=== PATIENT | female | born 1945 | race Asian ===

== ENCOUNTER 2022-08-02 14:59 | Inpatient (IN) ==
[2022-08-02] MEDS ORDERED: fentaNYL citrate PF 100 MCG/2 ML VIAL IV STA (15:10)
[2022-08-02] MEDS ORDERED: ONDANSETRON INJ 2 MG/ML 2 ML VIAL IV STA (15:10)
[2022-08-02] MEDS ORDERED: SODIUM CHLORIDE 0.9% 500 ML IV STA (15:10)
--- NOTE | 2022-08-02 15:14 | Emergency Department Note ---
Impression & Plan Fracture of pubic ramus, Fall, Contusion of elbow, right, Abrasion of elbow, right ED Provider Note NAME: SHAWN WILLAIM AGE: 77 SEX: F : 1945 ARRIVES VIA: Ambulance INFORMANT: Patient, ED PROVIDER(S): Brock Cisse DO CHIEF COMPLAINT: Hip pain HPI: The patient is a 77-year-old female who presented to the emergency department for an evaluation after a fall. The patient was walking when she fell onto her right side. She states that she was trying to run with some children. She states that she has severe pain in her right hip and is unable to stand. She also injured her right elbow. She denies having any head injury or headache. She has no loss of consciousness reported. There is been no recent symptoms such as fever or vomiting. The patient arrived via BLS. ROS: See above HPI for pertinent positives & negatives. A total of 10 systems reviewed and were otherwise negative. PAST MEDICAL HISTORY: See Below PAST SURGICAL HISTORY: See Below FAMILY HISTORY: See Below SOCIAL HISTORY: See Below HOME MEDICATIONS: See Below ALLERGIES: See Below VITALS: See Below PHYSICAL EXAMINATION: GENERAL: The patient is awake and alert. She is somewhat anxious appearing. EYES: The conjunctivae are clear. The pupils are round and reactive. EARS, NOSE, MOUTH AND THROAT: The nose is without any evidence of any deformity. NECK: The neck is nontender and supple. RESPIRATORY: Normal respiratory effort is noted there is no evidence of wheezing rhonchi or rales CARDIOVASCULAR: Regular rate and rhythm noted there no murmurs rubs or gallops normal S1 normal S2. GASTROINTESTINAL: The abdomen is soft. Abdomen is nontender. BACK: No midline tenderness or or step-off noted range of motion in flexion extension as well as rotation no signs of muscle spasm noted MUSCULOSKELETAL/EXTREMITIES: There is no definite shortening of the right hip but range of motion testing does elicit severe pain. Pulses are symmetric in both feet. There is an abrasion as well as swelling on the lateral aspect of the right elbow. SKIN: There is no obvious evidence of any rash. There are no petechiae, pallor or cyanosis noted. NEUROLOGIC: Patient is awake alert and oriented x3. MEDICAL DECISION MAKING: The patient is a 77-year-old female who presented to the emergency department for an evaluation after a fall. The patient's history and physical exam appear to be consistent with a hip fracture however x-ray does appear to be consistent with an inferior and superior pubic rami fracture of the right hemipelvis. The patient was treated with pain medication. Given her findings I do not feel she would be a good candidate for outpatient management at this time. For this reason I discussed the patient's laboratory and radiographic studies with her. I discussed her condition with her. I also discussed her condition with the on- call [facility]. They have agreed to evaluate the patient in the emergency department for further management and disposition. Triage Nursing notes reviewed. Prior medical records reviewed Vital Signs: reviewed and remarkable for no significant abnormalities Differential diagnosis: Fracture, dislocation, neurovascular compromise, compartment syndrome, soft tissue injury, as well as other pathologies. ER treatment provided: See below Diagnostics interpreted by me: ECG: EKG was obtained in the emergency department. My interpretation is normal sinus rhythm at 81 bpm. There is no ectopy. There is no acute ST segment abnormalities noted. This was compared to a tracing from March 09, 2022. No changes were noted. Cardiac Monitoring: An order was placed for continuous cardiac monitoring. The monitor shows a rate of 81 bpm with sinus rhythm. Laboratory studies: As stated above and show below. Imaging studies: See below. Radiographic imaging was reviewed by myself Consultation(s): I discussed this case with Dr. Streeter who is on-call for the [facility] group. Past Med/Surg History Medical History (Updated 08/02/22 @ 18:38 by Brittany Hill PA-C) Alzheimer's dementia B12 deficiency Memory loss Surgical History History of bunionectomy S/P appendectomy S/P tendon repair right shoulder Family History Mother Hypertension Stroke Father Neurological disorder Social History Smoking Status: Current every day smoker Tobacco Type: Cigarettes Preferred Language: Kazakh Feels Safe at Home: Yes Allergies Allergies Allergy/AdvReac Type Severity Reaction Status Date / Time No Known Allergies Allergy Verified 08/02/22 17:24 Home Meds Home Medications Medication Instructions Recorded Confirmed food supplemt, lactose-reduced 1 ea PO DAILY 12/22/21 08/02/22 (Ensure oral liquid) mecobalamin (vitamin B12) 1,000 1,000 mcg PO DAILY 12/22/21 08/02/22 mcg chewable tablet thiamine HCl (vitamin B1) 100 mg 100 mg PO DAILY 12/22/21 08/02/22 tablet alendronate 70 mg tablet 70 mg PO WK 12/25/21 08/02/22 calcium carbonate 600 mg-vitamin 1 cap PO DAILY 12/25/21 08/02/22 D3 12.5 mcg (500 unit) capsule (Calcium 600 with Vitamin D3) Previous Rx's Medication Instructions Recorded memantine 10 mg tablet 10 mg PO BID #60 tabs 06/04/22 Results & Data (ED) Vital Signs Vital Signs - 24 hr 08/02/22 15:10 08/02/22 15:36 08/02/22 16:17 Temperature 36.7 C Temperature Source Oral Pulse Rate 82 82 78 Pulse Rate [Right Brachial] Pulse Rhythm Regular Regular Pulse Rhythm [Right Brachial] Pulse Strength Normal Pulse Strength [Right Brachial] Respiratory Rate 19 19 Respiratory Effort / Characteristics Non-Labored Spontaneous Respiratory Depth Normal Respiratory Pattern Regular Blood Pressure 115/82 Blood Pressure [Right Arm] Blood Pressure Mean 93 Blood Pressure Mean [Right Arm] Blood Pressure Position Lying Blood Pressure Position [Right Arm] Pulse Oximetry 93 97 Oxygen Delivery Method Room Air Room Air Sepsis Recent Fever Within 48 Hours No Sepsis New/Unexplained Change in Mental Status No Sepsis Action Taken by Nursing No Action Required 08/02/22 17:59 Temperature Temperature Source Pulse Rate Pulse Rate [Right Brachial] 81 Pulse Rhythm Pulse Rhythm [Right Brachial] Regular Pulse Strength Pulse Strength [Right Brachial] Normal Respiratory Rate 19 Respiratory Effort / Characteristics Non-Labored Spontaneous Respiratory Depth Normal Respiratory Pattern Regular Blood Pressure Blood Pressure [Right Arm] 126/90 Blood Pressure Mean Blood Pressure Mean [Right Arm] 102 Blood Pressure Position Blood Pressure Position [Right Arm] Lying Pulse Oximetry 98 Oxygen Delivery Method Room Air Sepsis Recent Fever Within 48 Hours Sepsis New/Unexplained Change in Mental Status Sepsis Action Taken by [facility] Medications Current Medication List: was personally reviewed by me Laboratory Data Attestation: I reviewed the patient's lab results. 08/02/22 15:22 08/02/22 15:31 Lab Results 08/02/22 08/02/2223 Range/Units 15:22 15:22 15:31 WBC 7.32 (4.8-10.8) K/ul RBC 3.71 L (4.20-5.40) M/uL Hgb 11.7 L (12.0-16.0) g/dl Hct 36.1 L (37.0-47.0) % MCV 97.3 (80.0-100.0) fL MCH 31.5 (25.0-34.0) pg MCHC 32.4 (32.0-36.0) g/dL RDW Std Deviation 47.0 H (36.4-46.3) fL RDW Coeff of Carey 13.2 (11.5-14.5) % Plt Count 288 (130-400) K/uL MPV 8.9 L (9.4-12.4) fL Immature Gran % (Auto) 0.5 % Neut % (Auto) 71.9 % Lymph % (Auto) 18.4 % Piatt % (Auto) 7.4 % Eos % (Auto) 1.4 % Baso % (Auto) 0.4 % Neut # (Auto) 5.26 (1.40-6.50) K/uL Lymph # (Auto) 1.35 (1.2-3.4) K/uL Piatt # (Auto) 0.54 (0.11-0.59) K/uL Eos # (Auto) 0.10 (0-0.50) K/uL Baso # (Auto) 0.03 (0-0.2) K/uL Immature Gran # (Auto) 0.04 (0.01-0.20) K/uL PT 10.2 (9.0-12.0) Seconds INR 0.9 (0.9-1.1) APTT 25.2 (21.0-31.0) Seconds PTT Ratio 0.9 Sodium 141 (136-145) mmol/L Potassium 4.1 (3.5-5.1) mmol/L Chloride 109 H (98-107) mmol/L Carbon Dioxide 26 (21-32) mmol/L Anion Gap 6 (3-11) BUN 16 (6-23) mg/dl Creatinine 0.69 (0.6-1.2) mg/dl Est Cr Clr Drug Dosing 45.3 ml/min Est GFR ( Amer) 97.3 ml/min Est GFR (Non-Af Amer) 84.0 ml/min BUN/Creatinine Ratio 23.2 H (10-20) Glucose 99 (70-99(Fasting)) mg/dl Calcium 9.0 (8.6-10.3) mg/dl Total Bilirubin 0.4 (0.2-1.0) mg/dl AST 29 (13-39) U/L ALT 24 (7-52) U/L Alkaline Phosphatase 57 (34-104) U/L Troponin I High Sens 3.5 (0-14) pg/ml Total Protein 6.2 (6.0-8.3) gm/dl Albumin 3.8 (3.4-5.0) gm/dl Globulin 2.4 L (2.5-4.0) gm/dl Albumin/Globulin Ratio 1.6 (0.9-2) Lipase 43 (11-82) U/L SARS-CoV-2, RNA, NAAT (NEGATIVE) 08/02/22 Range/Units Unknown WBC (4.8-10.8) K/ul RBC (4.20-5.40) M/uL Hgb (12.0-16.0) g/dl Hct (37.0-47.0) % MCV (80.0-100.0) fL MCH (25.0-34.0) pg MCHC (32.0-36.0) g/dL RDW Std Deviation (36.4-46.3) fL RDW Coeff of Carey (11.5-14.5) % Plt Count (130-400) K/uL MPV (9.4-12.4) fL Immature Gran % (Auto) % Neut % (Auto) % Lymph % (Auto) % Piatt % (Auto) % Eos % (Auto) % Baso % (Auto) % Neut # (Auto) (1.40-6.50) K/uL Lymph # (Auto) (1.2-3.4) K/uL Piatt # (Auto) (0.11-0.59) K/uL Eos # (Auto) (0-0.50) K/uL Baso # (Auto) (0-0.2) K/uL Immature Gran # (Auto) (0.01-0.20) K/uL PT (9.0-12.0) Seconds INR (0.9-1.1) APTT (21.0-31.0) Seconds PTT Ratio Sodium (136-145) mmol/L Potassium (3.5-5.1) mmol/L Chloride (98-107) mmol/L Carbon Dioxide (21-32) mmol/L Anion Gap (3-11) BUN (6-23) mg/dl Creatinine (0.6-1.2) mg/dl Est Cr Clr Drug Dosing ml/min Est GFR ( Amer) ml/min Est GFR (Non-Af Amer) ml/min BUN/Creatinine Ratio (10-20) Glucose (70-99(Fasting)) mg/dl Calcium (8.6-10.3) mg/dl Total Bilirubin (0.2-1.0) mg/dl AST (13-39) U/L ALT (7-52) U/L Alkaline Phosphatase (34-104) U/L Troponin I High Sens (0-14) pg/ml Total Protein (6.0-8.3) gm/dl Albumin (3.4-5.0) gm/dl Globulin (2.5-4.0) gm/dl Albumin/Globulin Ratio (0.9-2) Lipase (11-82) U/L SARS-CoV-2, RNA, NAAT NEGATIVE (NEGATIVE) Administered Medications Discontinued Medications Fentanyl Citrate (Fentanyl Citrate Pf 100 Mcg/2 Ml Vial) 50 mcg IV NOW STA Stop: 08/02/22 15:11 Last Admin: 08/02/22 15:33 Dose: 50 mcg Documented By: JASON Sodium Chloride (Nss) 500 mls @ 999 mls/hr IV .Q31M STA Stop: 08/02/22 15:40 Last Infusion: 08/02/22 16:17 Dose: 0 mls/hr Documented By: Admin: 08/02/22 15:30 Dose: 999 mls/hr Documented By: JASON Ondansetron HCl (Ondansetron Inj 2 Mg/Ml 2 Ml Vial) 4 mg IV NOW STA Stop: 08/02/22 15:11 Last Admin: 08/02/22 15:32 Dose: 4 mg Documented By: JASON Imaging Data Attestation: I personally reviewed and interpreted this imaging study as follows: My Impression: 1 view chest x-ray was obtained in the emergency department. My interpretation is no free air or infiltrate, final report below. X-ray of the right hip and pelvis was obtained in the emergency department. My interpretation is inferior and superior pubic rami fractures with some displacement. No hip fracture was noted. Final report below. Radiologist's Impression: Chest X-Ray 08/02/22 15:10 XR chest 1V portable CLINICAL HISTORY: Chest pain, nonspecific TECHNIQUE: Single frontal radiograph of the chest was obtained. Comparison: None available at the time of this dictation. FINDINGS: No lines and tubes are seen. Calcified aortic knob is seen. The lungs are clear. No evidence of pleural effusion or pneumothorax. IMPRESSION: No acute chest disease. ACT 112: Negative or not required by law. Electronically signed by: Juan Alberto Mariscal M.D. 08/02/2022 5:01 PM Elbow X-Ray 08/02/22 15:10 XR elbow RT min 3V routine CLINICAL HISTORY: fall TECHNIQUE: 3 views of the right elbow were obtained. Comparison: None available at the time of this dictation. FINDINGS: There is no evidence of an acute fracture. Degenerative changes are seen in the elbow joint. There is no prominence of the anterior or posterior fat pads to suggest an effusion. No soft tissue abnormality is seen. IMPRESSION: No evidence of acute osseous injury. ACT 112: Negative or not required by law. Electronically signed by: Juan Alberto Mariscal M.D. 08/02/2022 4:42 PM Hip/Pelvis X-Ray 08/02/22 15:10 XR hip RT 2V w pelvis CLINICAL HISTORY: fall TECHNIQUE: 2 views of the right hip and single frontal view of the pelvis were obtained. Comparison: None available at the time of this dictation. FINDINGS: There is no evidence of an acute fracture. Joint spaces are well-preserved. No soft tissue abnormality is seen. IMPRESSION: No evidence of acute osseous injury. ACT 112: Negative or not required by law. Electronically signed by: Juan Alberto Mariscal M.D. 08/02/2022 4:[address] 08/02/22 17:15 CT pelvis wo con, CT hip RT wo con CLINICAL HISTORY: fall TECHNIQUE: Helical axial images of the pelvis were obtained and displayed at 5 and 1 mm intervals. Automated dose lowering techniques and/or adjustment according to patient size were utilized for this exam. Dedicated images of the right hip were also obtained. This exam was performed without intravenous contrast. CT DOSE: 331.02 mGy.cm COMPARISON: None available at the time of this dictation. FINDINGS: Bladder: Unremarkable. Reproductive organs: Multiple fibroids are seen. Bowel: Unremarkable. Lymph nodes Pelvic: Unremarkable. Mesenteric: Unremarkable. Peritoneum: Normal Vessels: Atherosclerotic calcifications are seen. Abdominal wall: Unremarkable. Bones: Comminuted fractures of the right inferior pubic ramus and right superior pubic ramus near the pubic symphysis noted. Nondisplaced fractures of the right pubic symphysis cannot be excluded. Degenerative changes are seen in the hips and visualized spine IMPRESSION: Comminuted fractures of the right superior and inferior pubic rami. Possible non displaced fracture of the right pubic symphysis. No hip fracture is seen. Additional findings as above. ACT 112: Negative or not required by law. Electronically signed by: Juan Alberto Mariscal M.D. 08/02/2022 6:[address] 08/02/22 17:15 CT pelvis wo con, CT hip RT wo con CLINICAL HISTORY: fall TECHNIQUE: Helical axial images of the pelvis were obtained and displayed at 5 and 1 mm intervals. Automated dose lowering techniques and/or adjustment according to patient size were utilized for this exam. Dedicated images of the right hip were also obtained. This exam was performed without intravenous contrast. CT DOSE: 331.02 mGy.cm COMPARISON: None available at the time of this dictation. FINDINGS: Bladder: Unremarkable. Reproductive organs: Multiple fibroids are seen. Bowel: Unremarkable. Lymph nodes Pelvic: Unremarkable. Mesenteric: Unremarkable. Peritoneum: Normal Vessels: Atherosclerotic calcifications are seen. Abdominal wall: Unremarkable. Bones: Comminuted fractures of the right inferior pubic ramus and right superior pubic ramus near the pubic symphysis noted. Nondisplaced fractures of the right pubic symphysis cannot be excluded. Degenerative changes are seen in the hips and visualized spine IMPRESSION: Comminuted fractures of the right superior and inferior pubic rami. Possible nondisplaced fracture of the right pubic symphysis. No hip fracture is seen. Additional findings as above. ACT 112: Negative or not required by law. Electronically signed by: Juan Alberto Mariscal M.D. 08/02/2022 6:25 PM Discharge Plan Visit Data Chief Complaint: Hip Pain Stated Complaint: FALL, R HIP PAIN ED Provider: Brock Cisse Discharge Problem: Fracture of pubic ramus, Fall, Contusion of elbow, right, Abrasion of elbow, right Patient Disposition: Being Evaluated by Hospitalist Forms Stand Alone Forms: [facility] Prescriptions Prescriptions: No Action mecobalamin (vitamin B12) 1,000 mcg tablet,chewable 1,000 mcg PO DAILY Ensure Liquid 1 ea PO DAILY thiamine HCl (vitamin B1) 100 mg tablet 100 mg PO DAILY memantine 10 mg tablet 10 mg PO BID Qty: 60 6RF alendronate 70 mg tablet 70 mg PO WK calcium carbonate-vitamin D3 [Calcium 600 with Vitamin D3] 600 mg-12.5 mcg (500 unit) capsule 1 cap PO DAILY Referrals Referrals: Darwin Burt DO [Primary Care Provider] - Fracture of pubic ramus Qualifiers: Encounter type: initial encounter Fracture type: closed Laterality: right Qualified Code(s): S32.591A - Other specified fracture of right pubis, initial encounter for closed fracture Fall Qualifiers: Encounter type: initial encounter Qualified Code(s): W19.XXXA - Unspecified fall, initial encounter Contusion of elbow, right Qualifiers: Encounter type: initial encounter Qualified Code(s): S50.01XA - Contusion of right elbow, initial encounter Abrasion of elbow, right Qualifiers: Encounter type: initial encounter Qualified Code(s): S50.311A - Abrasion of right elbow, initial encounter
[2022-08-02 15:47] LABS: Basophils # (auto) 0.03 K/uL (0-0.2); Basophils % (auto) 0.4 %; Eosinophils % (auto) 1.4 %; Hematocrit (blood only) 36.1 % (37.0-47.0); Hemoglobin 11.7 g/dl (12.0-16.0); Immature Granulocytes # (auto) 0.04 K/uL (0.01-0.20); Immature Granulocytes % (auto) 0.5 %; Lymphocytes # (auto) 1.35 K/uL (1.2-3.4); Lymphocytes % (auto) 18.4 %; Mean Corpuscular Hemoglobin 31.5 pg (25.0-34.0); Mean Corpuscular Hgb Conc 32.4 g/dL (32.0-36.0); Mean Corpuscular Volume 97.3 fL (80.0-100.0); Mean Platelet Volume 8.9 fL (9.4-12.4); Monocytes # (auto) 0.54 K/uL (0.11-0.59); Monocytes % (auto) 7.4 %; Neutrophils # (auto) 5.26 K/uL (1.40-6.50); Neutrophils % (auto) 71.9 %; Platelet Count 288 K/uL (130-400); RDW Coefficient of Variation 13.2 % (11.5-14.5); Red Blood Count 3.71 M/uL (4.20-5.40); White Blood Count 7.32 K/ul (4.8-10.8)
[2022-08-02 16:04] LABS: Albumin Globulin Ratio 1.6 (0.9-2); Albumin Level 3.8 gm/dl (3.4-5.0); BUN Creatinine Ratio 23.2 (10-20); Bilirubin,Total 0.4 mg/dl (0.2-1.0); Creatinine Clr Calc Pharmacy 45.3 ml/min; Est GFR (African American) 97.3 ml/min; Globulin 2.4 gm/dl (2.5-4.0); Potassium 4.1 mmol/L (3.5-5.1); Total Protein 6.2 gm/dl (6.0-8.3)
[2022-08-02 16:11] LABS: Troponin I High Sensitivity 3.5 pg/ml (0-14)
[2022-08-02 16:20] LABS: INR 0.9 (0.9-1.1); Partial Thromboplastin Ratio 0.9; Partial Thromboplastin Time 25.2 Seconds (21.0-31.0); Prothrombin Time 10.2 Seconds (9.0-12.0)
--- NOTE | 2022-08-02 16:31 | XRay Report ---
XR hip RT 2V w pelvis CLINICAL HISTORY: fall TECHNIQUE: 2 views of the right hip and single frontal view of the pelvis were obtained. Comparison: None available at the time of this dictation. FINDINGS: There is no evidence of an acute fracture. Joint spaces are well-preserved. No soft tissue abnormalit y is seen. IMPRESSION: No evidence of acute osseous injury. ACT 112: Negative or not required by law. Electronically signed by: Juan Alberto Mariscal M.D. 08/02/2022 4:29 PM
--- NOTE | 2022-08-02 16:44 | XRay Report ---
XR elbow RT min 3V routine CLINICAL HISTORY: fall TECHNIQUE: 3 views of the right elbow were obtained. Comparison: None available at the time of this dictation. FINDINGS: There is no evidence of an acute fracture. Degenerative changes are seen in the elbow joint. There is no prominence of the anterior or posterior fat pads to suggest an effusion. No soft tissue abnormali ty is seen. IMPRESSION: No evidence of acute osseous injury. ACT 112: Negative or not required by law. Electronically signed by: Juan Alberto Mariscal M.D. 08/02/2022 4:42 PM
--- NOTE | 2022-08-02 17:02 | XRay Report ---
XR chest 1V portable CLINICAL HISTORY: Chest pain, nonspecific TECHNIQUE: Single frontal radiograph of the chest was obtained. Comparison: None available at the time of this dictation. FINDINGS: No lines and tubes are seen. Calcified aortic knob is seen. The lungs are clear. No evidence of pleur al effusion or pneumothorax. IMPRESSION: No acute chest disease. ACT 112: Negative or not required by law. Electronically signed by: Juan Alberto Mariscal M.D. 08/02/2022 5:01 PM
--- NOTE | 2022-08-02 18:27 | CT Scan Report ---
CT pelvis wo con, CT hip RT wo con CLINICAL HISTORY: fall TECHNIQUE: Helical axial images of the pelvis were obtained and displayed at 5 and 1 mm intervals. Au tomated dose lowering techniques and/or adjustment according to patient size were utilized for this e xam. Dedicated images of the right hip were also obtained. This exam was performed without intravenou s contrast. CT DOSE: 331.02 mGy.cm COMPARISON: None available at the time of this dictation. FINDINGS: Bladder: Unremarkable. Reproductive organs: Multiple fibroids are seen. Bowel: Unremarkable. Lymph nodes Pelvic: Unremarkable. Mesenteric: Unremarkable. Peritoneum: Normal Vessels: Atherosclerotic calcifications are seen. Abdominal wall: Unremarkable. Bones: Comminuted fractures of the right inferior pubic ramus and right superior pubic ramus near the pubic symphysis noted. Nondisplaced fractures of the right pubic symphysis cannot be excluded. Degen erative changes are seen in the hips and visualized spine IMPRESSION: Comminuted fractures of the right superior and inferior pubic rami. Possible nondisplaced fracture of the right pubic symphysis. No hip fracture is seen. Additional findings as above. ACT 112: Negative or not required by law. Electronically signed by: Juan Alberto Mariscal M.D. 08/02/2022 6:25 PM
--- NOTE | 2022-08-02 18:38 | History & Physical Report ---
Date of Service August 02, 2022 Assessment & Plan (1) Fall: (2) Fracture of pubic ramus: (3) Contusion of elbow, right: (4) Abrasion of elbow, right: (5) Alzheimer's dementia: (6) Osteoporosis: Plan This is a 77-year-old female who presents to ED after sustaining a mechani jerri fall at home. Her past medical history includes Alzheimer's dementia, tobacco abuse, osteoporosis, B12 deficiency and bilateral atherosclerosis of lower extremities. Fall, mechanical Osteoporosis with pathologic R pubic rami fx admit to medical consult ortho bed rest for now, consult PT/OT after seen and cleared by ortho if non surgical scheduled tylenol for pain, ICE, prn morphine for severe pain regular diet Dementia continue namenda Tobacco abuse pt declines nicotine patch at this time mood stable and pleasent Osteoporosis on fosamax as OP also just started on vit D 1,000 IU daily vit D level in a.m. DVT ppx: SCDS Dispo: admit to medical, will need ortho clearance and then PT/OT, likely to need rehab PCP: [facility] Pt was seen and examined in collaboration with Dr. Streeter, please see addendum History of Present Illness Chief Complaint: Fall prior to arrival. Primary Care Provider: Darwin Burt, This is a 77-year-old female who presents to ED after sustaining a mechanical fall at home. Her past medical history includes Alzheimer's dementia, tobacco abuse, osteoporosis, B12 deficiency and bilateral atherosclerosis of lower extremities. Imaging in ED revealed comminuted fracture of the right superior and inferior pubic rami with a possible nondisplaced fracture of the right pubic symphysis. She also has a right elbow abrasion and contusion. Due to her dementia her underlying history is unreliable. She states she fell when trying to, "get her Doberman." Friends at bedside state this was not the case and that she fell on her payment. Up until her fall today she is otherwise been in normal state of health. She denies any recent illness, fever, chills, sweats, chest pain, shortness of breath, nausea, vomiting, abdominal pain. She has no family close by. She does have a daughter that lives up in [place] who is her power of deputy commonwealth's attorney. Allergies Allergy/AdvReac Type Severity Reaction Status Date / Time No Known Allergies Allergy Verified 08/02/22 17:24 Home Medications Medication Instructions Recorded Confirmed Type food supplemt, lactose-reduced 1 ea PO DAILY 12/22/21 08/02/22 History (Ensure oral liquid) mecobalamin (vitamin B12) 1,000 1,000 mcg PO DAILY 12/22/21 08/02/22 History mcg chewable tablet thiamine HCl (vitamin B1) 100 mg 100 mg PO DAILY 12/22/21 08/02/22 History tablet alendronate 70 mg tablet 70 mg PO WE 12/25/21 08/02/22 History calcium carbonate 600 mg-vitamin 1 cap PO DAILY 12/25/21 08/02/22 History D3 12.5 mcg (500 unit) capsule (Calcium 600 with Vitamin D3) memantine 10 mg tablet 10 mg PO BID #60 tabs 06/04/22 08/02/22 Rx cholecalciferol (vitamin D3) 25 25 mcg PO DAILY 08/02/22 08/02/22 History mcg (1,000 unit) capsule (Vitamin D3) multivitamin-ferrous 1 tab PO DAILY 08/02/22 08/02/22 History fumarate-folic acid 18 mg-400 mcg tablet (Centrum Women) pantoprazole 40 mg tablet,delayed 40 mg PO DAILY 08/02/22 08/02/22 History release Past Med/Surg History Medical History (Updated 08/02/22 @ 18:38 by Brittany Hill PA-C) Alzheimer's dementia B12 deficiency Memory loss Surgical History History of bunionectomy S/P appendectomy S/P tendon repair right shoulder Family History Mother Hypertension Stroke Father Neurological disorder Social History Smoking Status: Current every day smoker Tobacco Type: Cigarettes Preferred Language: Wolof Feels Safe at Home: Yes Review of Systems Review of Systems: All systems reviewed & are unremarkable except as noted in HPI & below Physical Exam Physical Exam: Constitutional: Thin, petite vitals as above, NAD, sitting up in bed, pleasant, conversing easily Head: Normocephalic, Atraumatic Eyes: PERRL, conjunctivae normal, anicteric sclerae ENMT: external ear and nose normal, oropharynx normal Neck: trachea midline, no thyromegaly normal visual inspection Respiratory: normal respiratory effort, lungs clear to auscultation, no wheeze, rales, rhonchi. Normal insp/exp effort, no accessory muscle use Cardiovascular: RRR, no murmur, no edema Vessels: no JVD or carotid bruit Chest: normal inspection of chest Abdomen: normal bowel sounds, soft, nontender, no hepatosplenomegaly Musculoskeletal: no cyanosis or clubbing, b/l upper ext arom intact, nvi distally lower ext Skin: no rashes, warm and dry normal turgor , R elbow skin tear Neurologic: PERRL, EOMI, accommodation nl, no face palsy, no dysarthria CN's II-XI intact bilaterally and moves all extremities Psychiatric: A+Ox2 to person/time, euthymic affect Lymphatic: no cervical or axillary lymphadenopathy : deferred Results & Data Results & Data Vital Signs (Past 12 Hours) Vital Signs Temp Pulse Pulse Resp BP BP Pulse Ox 08/02/22 17:59 81 19 126/90 98 08/02/22 16:17 78 08/02/22 15:36 82 19 97 08/02/22 15:10 36.7 C 82 19 115/82 93 O2 Del Method 08/02/22 17:59 Room Air 08/02/22 16:17 08/02/22 15:36 Room Air 08/02/22 15:10 Room Air Diagnostic Findings Chest X-Ray 08/02/22 15:10 XR chest 1V portable CLINICAL HISTORY: Chest pain, nonspecific TECHNIQUE: Single frontal radiograph of the chest was obtained. Comparison: None available at the time of this dictation. FINDINGS: No lines and tubes are seen. Calcified aortic knob is seen. The lungs are clear. No evidence of pleural effusion or pneumothorax. IMPRESSION: No acute chest disease. ACT 112: Negative or not required by law. Electronically signed by: Juan Alberto Mariscal M.D. 08/02/2022 5:01 PM Elbow X-Ray 08/02/22 15:10 XR elbow RT min 3V routine CLINICAL HISTORY: fall TECHNIQUE: 3 views of the right elbow were obtained. Comparison: None available at the time of this dictation. FINDINGS: There is no evidence of an acute fracture. Degenerative changes are seen in the elbow joint. There is no prominence of the anterior or posterior fat pads to suggest an effusion. No soft tissue abnormality is seen. IMPRESSION: No evidence of acute osseous injury. ACT 112: Negative or not required by law. Electronically signed by: Juan Alberto Mariscal M.D. 08/02/2022 4:42 PM Hip/Pelvis X-Ray 08/02/22 15:10 XR hip RT 2V w pelvis CLINICAL HISTORY: fall TECHNIQUE: 2 views of the right hip and single frontal view of the pelvis were obtained. Comparison: None available at the time of this dictation. FINDINGS: There is no evidence of an acute fracture. Joint spaces are well-preserved. No soft tissue abnormality is seen. IMPRESSION: No evidence of acute osseous injury. ACT 112: Negative or not required by law. Electronically signed by: Juan Alberto Mariscal M.D. 08/02/2022 4:[address] 08/02/22 17:15 CT pelvis wo con, CT hip RT wo con CLINICAL HISTORY: fall TECHNIQUE: Helical axial images of the pelvis were obtained and displayed at 5 and 1 mm intervals. Automated dose lowering techniques and/or adjustment according to patient size were utilized for this exam. Dedicated images of the right hip were also obtained. This exam was performed without intravenous contrast. CT DOSE: 331.02 mGy.cm COMPARISON: None available at the time of this dictation. FINDINGS: Bladder: Unremarkable. Reproductive organs: Multiple fibroids are seen. Bowel: Unremarkable. Lymph nodes Pelvic: Unremarkable. Mesenteric: Unremarkable. Peritoneum: Normal Vessels: Atherosclerotic calcifications are seen. Abdominal wall: Unremarkable. Bones: Comminuted fractures of the right inferior pubic ramus and right superior pubic ramus near the pubic symphysis noted. Nondisplaced fractures of the right pubic symphysis cannot be excluded. Degenerative changes are seen in the hips and visualized spine IMPRESSION: Comminuted fractures of the right superior and inferior pubic rami. Possible nondisplaced fracture of the right pubic symphysis. No hip fracture is seen. Additional findings as above. ACT 112: Negative or not required by law. Electronically signed by: Juan Alberto Mariscal M.D. 08/02/2022 6:[address] 08/02/22 17:15 CT pelvis wo con, CT hip RT wo con CLINICAL HISTORY: fall TECHNIQUE: Helical axial images of the pelvis were obtained and displayed at 5 and 1 mm intervals. Automated dose lowering techniques and/or adjustment according to patient size were utilized for this exam. Dedicated images of the right hip were also obtained. This exam was performed without intravenous contrast. CT DOSE: 331.02 mGy.cm COMPARISON: None available at the time of this dictation. FINDINGS: Bladder: Unremarkable. Reproductive organs: Multiple fibroids are seen. Bowel: Unremarkable. Lymph nodes Pelvic: Unremarkable. Mesenteric: Unremarkable. Peritoneum: Normal Vessels: Atherosclerotic calcifications are seen. Abdominal wall: Unremarkable. Bones: Comminuted fractures of the right inferior pubic ramus and right superior pubic ramus near the pubic symphysis noted. Nondisplaced fractures of the right pubic symphysis cannot be excluded. Degenerative changes are seen in the hips and visualized spine IMPRESSION: Comminuted fractures of the right superior and inferior pubic rami. Possible nondisplaced fracture of the right pubic symphysis. No hip fracture is seen. Additional findings as above. ACT 112: Negative or not required by law. Electronically signed by: Juan Alberto Mariscal M.D. 08/02/2022 6:25 PM Medications Administered Medication List Discontinued Medications Fentanyl Citrate (Fentanyl Citrate Pf 100 Mcg/2 Ml Vial) 50 mcg IV NOW STA Stop: 08/02/22 15:11 Last Admin: 08/02/22 15:33 Dose: 50 mcg Documented By: JASON Sodium Chloride (Nss) 500 mls @ 999 mls/hr IV .Q31M STA Stop: 08/02/22 15:40 Last Infusion: 08/02/22 16:17 Dose: 0 mls/hr Documented By: Admin: 08/02/22 15:30 Dose: 999 mls/hr Documented By: JASON Ondansetron HCl (Ondansetron Inj 2 Mg/Ml 2 Ml Vial) 4 mg IV NOW STA Stop: 08/02/22 15:11 Last Admin: 08/02/22 15:32 Dose: 4 mg Documented By: JASON ECG Rate (beats per minute): 81 Rhythm: normal sinus Additional Comments: qtc 460ms COVID-19 Results Results COVID-19 Adm Lab Results: RBC 3.71 M/uL (4.20-5.40) L 08/02/22 WBC 7.32 K/ul (4.8-10.8) 08/02/22 Hgb 11.7 g/dl (12.0-16.0) L 08/02/22 Hct 36.1 % (37.0-47.0) L 08/02/22 Plt Count 288 K/uL (130-400) 08/02/22 Neutrophils (%) (Auto) 71.9 % 08/02/22 Lymphocytes (%) (Auto) 18.4 % 08/02/22 Monocytes # (Auto) 0.54 K/uL (0.11-0.59) 08/02/22 Eosinophils # (Auto) 0.10 K/uL (0-0.50) 08/02/22 Immature Granulocyte % (Auto) 0.5 % 08/02/22 Neutrophils # (Auto) 5.26 K/uL (1.40-6.50) 08/02/22 Lymphocytes # (Auto) 1.35 K/uL (1.2-3.4) 08/02/22 Monocytes # (Auto) 0.54 K/uL (0.11-0.59) 08/02/22 Eosinophils # (Auto) 0.10 K/uL (0-0.50) 08/02/22 Basophils # (Auto) 0.03 K/uL (0-0.2) 08/02/22 Immature Granulocyte # (Auto) 0.04 K/uL (0.01-0.20) 3 Na 141 mmol/L (136-145) 08/02/22 K 4.1 mmol/L (3.5-5.1) 08/02/22 Cl 109 mmol/L (98-107) H 08/02/22 CO2 26 mmol/L (21-32) 08/02/22 Anion Gap 6 (3-11) 08/02/22 BUN 16 mg/dl (6-23) 08/02/22 Creatinine 0.69 mg/dl (0.6-1.2) 08/02/22 BUN/Creatinine Ratio 23.2 (10-20) H 08/02/22 Glucose Level 99 mg/dl (70-99(Fasting)) 08/02/22 Ca 9.0 mg/dl (8.6-10.3) 08/02/22 Total Bilirubin 0.4 mg/dl (0.2-1.0) 08/02/22 AST/SGOT 29 U/L (13-39) 08/02/22 ALT/SGPT 24 U/L (7-52) 08/02/22 Alkaline Phosphatase 57 U/L (34-104) 08/02/22 Total Protein 6.2 gm/dl (6.0-8.3) 08/02/22 Albumin 3.8 gm/dl (3.4-5.0) 08/02/22 Globulin 2.4 gm/dl (2.5-4.0) L 08/02/22 Albumin/Globulin Ratio 1.6 (0.9-2) 08/02/22 PTT 25.2 Seconds (21.0-31.0) 08/02/22 INR 0.9 (0.9-1.1) 08/02/22 SARS-CoV-2, RNA, NAAT NEGATIVE (NEGATIVE) 08/02/22 Chest X-Ray 08/02/22 Code Status & VTE Plan Code Status FULL CODE VTE Prophylaxis Plan VTE Prophylaxis will be ordered: Yes Supervising Physician Co-Signing Physician Notes I have seen and examined the patient and have discussed the case with the provider above. I agree with the assessment and plan as stated. 77 yo female with dementia preesents with right hip pain after ra fall. She is unable to walk and was found to have a pelvis fracture. She continuees to repeat herself and has surprise when you repeat something that was just said. Poor historian. No current pain at rest but pain with moovmeeent. Physical revelas a thin , frail female in NAD. Speech intact but has memory decline. Disoriented to time. Carrdiopulmonaryr exam is within normal limits and lower extremities are NVI. Workup reveals fracture as noted above. Labs and imaging reviewed. 1. Osteoporotic fracture of pubic ramus 2. Dementia 3. Smoker 77 yo female with dementia who lives alone and suffered a fall with pubic ring fracture. Currently unable to walk and ortho is consulted. Cont good pain control efforts. PT/OT evaluation and recs. DO Ferdinand (1) Fall Encounter type: initial encounter Qualified Code(s): W19.XXXA - Unspecified fall, initial encounter (2) Fracture of pubic ramus Encounter type: initial encounter Fracture type: closed Laterality: right Qualified Code(s): S32.591A - Other specified fracture of right pubis, initial encounter for closed fracture (3) Contusion of elbow, right Encounter type: initial encounter Qualified Code(s): S50.01XA - Contusion of right elbow, initial encounter (4) Abrasion of elbow, right Encounter type: initial encounter Qualified Code(s): S50.311A - Abrasion of right elbow, initial encounter
[2022-08-02] MEDS ORDERED: MoRPHine SULFATE 2 MG/ML CARP IV PRN (20:57)
[2022-08-02] MEDS ORDERED: ACETAMINOPHEN 325 MG TAB PO PRN (20:57)
[2022-08-02] MEDS ORDERED: POLYETHYLENE (MIRALAX) 17 GM PACK PO PRN (20:57)
[2022-08-02] MEDS: ACETAMINOPHEN 325 MG TAB PO SCH (22:26)
[2022-08-02] MEDS: MEMANTINE HCL 10 MG TAB PO SCH (22:27)
[2022-08-03 06:54] LABS: Hematocrit (blood only) 32.5 % (37.0-47.0); Hemoglobin 10.5 g/dl (12.0-16.0); Mean Corpuscular Hemoglobin 31.3 pg (25.0-34.0); Mean Corpuscular Hgb Conc 32.3 g/dL (32.0-36.0); Mean Corpuscular Volume 96.7 fL (80.0-100.0); Mean Platelet Volume 9.1 fL (9.4-12.4); Platelet Count 243 K/uL (130-400); RDW Coefficient of Variation 13.1 % (11.5-14.5); RDW Standard Deviation 46.4 fL (36.4-46.3); Red Blood Count 3.36 M/uL (4.20-5.40); White Blood Count 7.23 K/ul (4.8-10.8)
[2022-08-03 07:12] LABS: BUN Creatinine Ratio 24.6 (10-20); Calcium 8.8 mg/dl (8.6-10.3); Creatinine Clr Calc Pharmacy 49.5 ml/min; Est GFR (African American) 101.3 ml/min; Est GFR (Non-African American) 87.4 ml/min
--- NOTE | 2022-08-03 07:36 | Orthopedic Consultation ---
Date of Consultation August 02, 2022 Assessment & Plan (1) Fracture of pubic ramus: 77-year-old female with lateral compression I pelvis fracture -Pain control -Weight-bear as tolerated right lower extremity with walker -PT/OT -DVT prophylaxis per primary team -Medical management -Patient is stable from orthopedic standpoint. Would recommend conservative treatment with judicious pain control as well as weightbearing as tolerated using a walker with the assistance of physical therapy. No further orthopedic intervention at this time. Patient may follow-up as an outpatient in 1-2 weeks History of Present Illness Attending Physician: Khris Fuchs MD History of Present Illness 77-year-old female presenting after sustaining a ground-level fall onto her right side. She noted difficulty ambulating and pain in her groin/pubic area. In the emergency department radiographs and CT scan were obtained which demonstrated right pubic rami fractures. She was admitted to medical service and orthopedics was consulted for management recommendations. Allergies Allergy/AdvReac Type Severity Reaction Status Date / Time No Known Allergies Allergy Verified 08/02/22 17:24 Home Medications Medication Instructions Recorded Confirmed Type food supplemt, lactose-reduced 1 ea PO DAILY 12/22/21 08/02/22 History (Ensure oral liquid) mecobalamin (vitamin B12) 1,000 1,000 mcg PO DAILY 12/22/21 08/02/22 History mcg chewable tablet thiamine HCl (vitamin B1) 100 mg 100 mg PO DAILY 12/22/21 08/02/22 History tablet alendronate 70 mg tablet 70 mg PO WE 12/25/21 08/02/22 History calcium carbonate 600 mg-vitamin 1 cap PO DAILY 12/25/21 08/02/22 History D3 12.5 mcg (500 unit) capsule (Calcium 600 with Vitamin D3) memantine 10 mg tablet 10 mg PO BID #60 tabs 06/04/22 08/02/22 Rx cholecalciferol (vitamin D3) 25 25 mcg PO DAILY 08/02/22 08/02/22 History mcg (1,000 unit) capsule (Vitamin D3) multivitamin-ferrous 1 tab PO DAILY 08/02/22 08/02/22 History fumarate-folic acid 18 mg-400 mcg tablet (Centrum Women) pantoprazole 40 mg tablet,delayed 40 mg PO DAILY 08/02/22 08/02/22 History release Patient History Medical History (Updated 08/02/22 @ 18:38 by Brittany Hill PA-C) Alzheimer's dementia B12 deficiency Memory loss Surgical History History of bunionectomy S/P appendectomy S/P tendon repair right shoulder Family History Mother Hypertension Stroke Father Neurological disorder Social History Smoking Status: Current every day smoker Tobacco Type: Cigarettes Cigarettes Per Day: 4-6; Second Hand Exposure: No; Do You Dip or Chew Tobacco: No; Tobacco Cessation Education Requested by Patient: No Hx Alcohol Use: Yes Alcohol type: wine Hx Substance Use: No Preferred Language: Azerbaijani Communication Ability: Effective Operations [place] Required: No Beliefs That Will Affect Care: None Current Living Situation: Alone Other Information That Helps Us Care for You: No Feels Safe at Home: Yes Safety Concerns: Feels Safe At This Time Assistive Devices: Denture - Upper, Denture - Lower, Glasses, Hospital Bed and Walker Physical Exam Constitutional: General: No acute distress, alert and oriented to person place and time Musculoskeletal: Right lower extremity -Tolerates logroll without any significant pain, there is minimal tenderness ove r the posterior SI joint -Thigh soft and compressible -Sensation intact to light touch f/s/spn/dpn/t/s -Fires qta/ehl/gsc + dp/pt Results & Data Vital Signs (Past 12 Hours) Vital Signs Temp Pulse Pulse Resp BP BP Pulse Ox 08/03/22 07:12 36.9 C 86 16 123/73 96 08/02/22 20:45 08/02/22 20:45 08/02/22 20:45 36.7 C 80 16 124/74 95 08/02/22 20:45 08/02/22 21:47 36.7 C 80 16 124/74 95 08/02/22 20:04 82 19 140/72 93 Pulse Ox O2 Del Method O2 Del Method 08/03/22 07:12 Room Air 08/02/22 20:45 Room Air 08/02/22 20:45 Room Air 08/02/22 20:45 Room Air 08/02/22 20:45 95 Room Air 08/02/22 21:47 Room Air 08/02/22 20:04 Room Air Diagnostic Findings CT scan of the pelvis demonstrates mildly displaced right superior and inferior pubic rami fractures. There also appears to be a mildly impacted fracture involving the right sacral ala. (1) Fracture of pubic ramus Encounter type: initial encounter Fracture type: closed Laterality: right Qualified Code(s): S32.591A - Other specified fracture of right pubis, initial encounter for closed fracture
[2022-08-03] MEDS: MEMANTINE HCL 10 MG TAB PO SCH ×2 (09:15→20:03)
[2022-08-03] MEDS: CALCIUM 600MG + VIT D 400 IU TAB PO SCH (09:16)
[2022-08-03] MEDS: THIAMINE HCL 100 MG TAB PO SCH (09:16)
[2022-08-03] MEDS: CYANOCOBALAMIN (B-12) 500 MCG TABLET PO SCH (09:16)
[2022-08-03] MEDS: MULTIVITAMIN TAB PO SCH (09:16)
[2022-08-03] MEDS: PANTOprazole 40 MG TAB PO SCH (09:17)
[2022-08-03] MEDS: CHOLECALCIFEROL 1,000 UNITS 25 MCG TAB PO SCH (09:17)
[2022-08-03] MEDS: ACETAMINOPHEN 325 MG TAB PO SCH ×4 (09:17→20:02)
--- NOTE | 2022-08-03 10:32 | Electrocardiogram Report ---
Test Reason : Blood Pressure : / mmHG Vent. Rate : 081 BPM Atrial Rate : 081 BPM P-R Int : 130 ms QRS Dur : 074 ms QT Int : 396 ms P-R-T Axes : 119 034 038 degrees QTc Int : 460 ms Normal sinus rhythm Nonspecific ST abnormality Abnormal ECG When compared with ECG of 09-MAR-2022 16:24, No significant change was found Confirmed by Scot Coelho ([id number]) on 08/03/2022 10:32:05 AM Referred By: Confirmed By:Scot Coelho
--- NOTE | 2022-08-03 15:40 | Hospitalist Progress Note ---
Date of Service August 03, 2022 Assessment & Plan (1) Fall: (2) Fracture of pubic ramus: (3) Contusion of elbow, right: (4) Abrasion of elbow, right: (5) Alzheimer's dementia: (6) Osteoporosis: Plan This is a 77-year-old female who presents to ED after sustaining a mechani jerri fall at home. Her past medical history includes Alzheimer's dementia, tobacco abuse, osteoporosis, B12 deficiency and bilateral atherosclerosis of lower extremities. Fall, mechanical Osteoporosis with pathologic R pubic rami fx Patient is a 77-year-old female with history of dementia presented to the ED with mechanical fall Pelvic CT shows comminuted fracture of right superior and inferior pubic rami. Possible nondisplaced fracture of right pubic symphysis. Orthopedic consulted; recommend weightbearing as tolerated on right lower extremity with walker. PT OT ordered. Pain control Follow-up as outpatient with orthopedic in 1 to 2 days DVT prophylaxis with Lovenox ordered. Dementia continue namenda Tobacco abuse pt declines nicotine patch at this time mood stable and pleasent Osteoporosis on fosamax as OP also just started on vit D 1,000 IU daily Vitamin D 23.7 Continue home supplement. DVT ppx: lovenox Dispo: admit to medical, PT/OT eval; will likely need rehab. PCP: [facility] FULL CODE Please note the above document was generated using voice recognition software. It may contain grammatical, syntax or spelling errors. Any formal questions or concerns about the content, text or information contained within the body of this dictation should be directly addressed to the provider for clarification Admission and Anticipated Discharge Date Admission Date: August 02, 2022 Subjective Patient seen and examined at bedside. She is sitting up on the chair at the side of the bed. She is pleasantly demented; she is oriented to self. She knows that she is here due to a fall resulting in hip fracture. Reports pain on movement of her right hip. Review of Systems Review of Systems: All systems reviewed & are unremarkable except as noted in Subjective Physical Exam Physical Exam: Constitutional: Awake, alert, oriented to self. Not in distress. Respiratory: normal respiratory effort, lungs clear to auscultation, no wheeze, rales, rhonchi. Normal insp/exp effort, no accessory muscle use Cardiovascular: RRR, no murmur, no edema Vessels: no JVD or carotid bruit Chest: normal inspection of chest Abdomen: normal bowel sounds, soft, nontender, no hepatosplenomegaly Musculoskeletal: Painful ROM on right hip. Skin: no rashes, warm and dry normal turgor Neurologic: PERRL, EOMI, accommodation nl, no face palsy, no dysarthria CN's II- XI intact bilaterally and moves all extremities Psychiatric: A+Ox self. Results & Data Results & Data Vital Signs (Past 12 Hours) Vital Signs Temp Pulse Resp BP Pulse Ox O2 Del Method 08/03/22 14:40 36.7 C 85 16 105/69 95 Room Air 08/03/22 07:12 36.9 C 86 16 123/73 96 Room Air Laboratory Results Laboratory Results WBC 7.23 K/ul (4.8-10.8) 08/03/22 06:24 RBC 3.36 M/uL (4.20-5.40) L 08/03/22 06:24 Hgb 10.5 g/dl (12.0-16.0) L 08/03/22 06:24 Hct 32.5 % (37.0-47.0) L 08/03/22 06:24 MCV 96.7 fL (80.0-100.0) 08/03/22 06:24 MCH 31.3 pg (25.0-34.0) 08/03/22 06:24 MCHC 32.3 g/dL (32.0-36.0) 08/03/22 06:24 RDW Std Deviation 46.4 fL (36.4-46.3) H 08/03/22 06:24 RDW Coeff of Carey 13.1 % (11.5-14.5) 08/03/22 06:24 Plt Count 243 K/uL (130-400) 08/03/22 06:24 MPV 9.1 fL (9.4-12.4) L 08/03/22 06:24 Immature Gran % (Auto) 0.5 % 08/02/22 15:22 Neut % (Auto) 71.9 % 08/02/22 15:22 Lymph % (Auto) 18.4 % 08/02/22 15:22 [place] % (Auto) 7.4 % 08/02/22 15:22 Eos % (Auto) 1.4 % 08/02/22 15:22 Baso % (Auto) 0.4 % 08/02/22 15:22 Neut # (Auto) 5.26 K/uL (1.40-6.50) 08/02/22 15:22 Lymph # (Auto) 1.35 K/uL (1.2-3.4) 08/02/22 15:22 [place] # (Auto) 0.54 K/uL (0.11-0.59) 08/02/22 15:22 Eos # (Auto) 0.10 K/uL (0-0.50) 08/02/22 15:22 Baso # (Auto) 0.03 K/uL (0-0.2) 08/02/22 15:22 Immature Gran # (Auto) 0.04 K/uL (0.01-0.20) 08/02/22 15:22 PT 10.2 Seconds (9.0-12.0) 08/02/22 15:22 INR 0.9 (0.9-1.1) 08/02/22 15:22 APTT 25.2 Seconds (21.0-31.0) 08/02/22 15:22 PTT Ratio 0.9 08/02/22 15:22 Sodium 141 mmol/L (136-145) 08/03/22 06:24 Potassium 4.0 mmol/L (3.5-5.1) 08/03/22 06:24 Chloride 110 mmol/L (98-107) H 08/03/22 06:24 Carbon Dioxide 27 mmol/L (21-32) 08/03/22 06:24 Anion Gap 4 (3-11) 08/03/22 06:24 BUN 15 mg/dl (6-23) 08/03/22 06:24 Creatinine 0.61 mg/dl (0.6-1.2) 08/03/22 06:24 Est Cr Clr Drug Dosing 49.5 ml/min 08/03/22 06:24 Est GFR ( Amer) 101.3 ml/min 08/03/22 06:24 Est GFR (Non-Af Amer) 87.4 ml/min 08/03/22 06:24 BUN/Creatinine Ratio 24.6 (10-20) H 08/03/22 06:24 Glucose 86 mg/dl (70-99(Fasting)) 08/03/22 06:24 Calcium 8.8 mg/dl (8.6-10.3) 08/03/22 06:24 Total Bilirubin 0.4 mg/dl (0.2-1.0) 08/02/22 15:31 AST 29 U/L (13-39) 08/02/22 15:31 ALT 24 U/L (7-52) 08/02/22 15:31 Alkaline Phosphatase 57 U/L (34-104) 08/02/22 15:31 Troponin I High Sens 3.5 pg/ml (0-14) 08/02/22 15:31 Total Protein 6.2 gm/dl (6.0-8.3) 08/02/22 15:31 Albumin 3.8 gm/dl (3.4-5.0) 08/02/22 15:31 Globulin 2.4 gm/dl (2.5-4.0) L 08/02/22 15:31 Albumin/Globulin Ratio 1.6 (0.9-2) 08/02/22 15:31 Lipase 43 U/L (11-82) 08/02/22 15:31 25-OH Vitamin D Total 23.7 ng/ml (30-100) L 08/02/22 15:31 SARS-CoV-2, RNA, NAAT NEGATIVE (NEGATIVE) 08/02/22 Unknown Impressions Chest X-Ray 08/02/22 15:10 XR chest 1V portable CLINICAL HISTORY: Chest pain, nonspecific TECHNIQUE: Single frontal radiograph of the chest was obtained. Comparison: None available at the time of this dictation. FINDINGS: No lines and tubes are seen. Calcified aortic knob is seen. The lungs are clear. No evidence of pleural effusion or pneumothorax. IMPRESSION: No acute chest disease. ACT 112: Negative or not required by law. Electronically signed by: Juan Alberto Mariscal M.D. 08/02/2022 5:01 PM Elbow X-Ray 08/02/22 15:10 XR elbow RT min 3V routine CLINICAL HISTORY: fall TECHNIQUE: 3 views of the right elbow were obtained. Comparison: None available at the time of this dictation. FINDINGS: There is no evidence of an acute fracture. Degenerative changes are seen in the elbow joint. There is no prominence of the anterior or posterior fat pads to suggest an effusion. No soft tissue abnormality is seen. IMPRESSION: No evidence of acute osseous injury. ACT 112: Negative or not required by law. Electronically signed by: Juan Alberto Mairscal M.D. 08/02/2022 4:42 PM Hip/Pelvis X-Ray 08/02/22 15:10 XR hip RT 2V w pelvis CLINICAL HISTORY: fall TECHNIQUE: 2 views of the right hip and single frontal view of the pelvis were obtained. Comparison: None available at the time of this dictation. FINDINGS: There is no evidence of an acute fracture. Joint spaces are well-preserved. No soft tissue abnormality is seen. IMPRESSION: No evidence of acute osseous injury. ACT 112: Negative or not required by law. Electronically signed by: Juan Alberto Mariscal M.D. 08/02/2022 4:[address] 08/02/22 17:15 CT pelvis wo con, CT hip RT wo con CLINICAL HISTORY: fall TECHNIQUE: Helical axial images of the pelvis were obtained and displayed at 5 and 1 mm intervals. Automated dose lowering techniques and/or adjustment according to patient size were utilized for this exam. Dedicated images of the right hip were also obtained. This exam was performed without intravenous contrast. CT DOSE: 331.02 mGy.cm COMPARISON: None available at the time of this dictation. FINDINGS: Bladder: Unremarkable. Reproductive organs: Multiple fibroids are seen. Bowel: Unremarkable. Lymph nodes Pelvic: Unremarkable. Mesenteric: Unremarkable. Peritoneum: Normal Vessels: Atherosclerotic calcifications are seen. Abdominal wall: Unremarkable. Bones: Comminuted fractures of the right inferior pubic ramus and right superior pubic ramus near the pubic symphysis noted. Nondisplaced fractures of the right pubic symphysis cannot be excluded. Degenerative changes are seen in the hips and visualized spine IMPRESSION: Comminuted fractures of the right superior and inferior pubic rami. Possible nondisplaced fracture of the right pubic symphysis. No hip fracture is seen. Additional findings as above. ACT 112: Negative or not required by law. Electronically signed by: Juan Alberto Mariscal M.D. 08/02/2022 6:[address] 08/02/22 17:15 CT pelvis wo con, CT hip RT wo con CLINICAL HISTORY: fall TECHNIQUE: Helical axial images of the pelvis were obtained and displayed at 5 and 1 mm intervals. Automated dose lowering techniques and/or adjustment according to patient size were utilized for this exam. Dedicated images of the right hip were also obtained. This exam was performed without intravenous contrast. CT DOSE: 331.02 mGy.cm COMPARISON: None available at the time of this dictation. FINDINGS: Bladder: Unremarkable. Reproductive organs: Multiple fibroids are seen. Bowel: Unremarkable. Lymph nodes Pelvic: Unremarkable. Mesenteric: Unremarkable. Peritoneum: Normal Vessels: Atherosclerotic calcifications are seen. Abdominal wall: Unremarkable. Bones: Comminuted fractures of the right inferior pubic ramus and right superior pubic ramus near the pubic symphysis noted. Nondisplaced fractures of the right pubic symphysis cannot be excluded. Degenerative changes are seen in the hips and visualized spine IMPRESSION: Comminuted fractures of the right superior and inferior pubic rami. Possible nondisplaced fracture of the right pubic symphysis. No hip fracture is seen. Additional findings as above. ACT 112: Negative or not required by law. Electronically signed by: Juan Alberto Mariscal M.D. 08/02/2022 6:25 PM (1) Fall Encounter type: initial encounter Qualified Code(s): W19.XXXA - Unspecified fall, initial encounter (2) Fracture of pubic ramus Encounter type: initial encounter Fracture type: closed Laterality: right Qualified Code(s): S32.591A - Other specified fracture of right pubis, initial encounter for closed fracture (3) Contusion of elbow, right Encounter type: initial encounter Qualified Code(s): S50.01XA - Contusion of right elbow, initial encounter (4) Abrasion of elbow, right Encounter type: initial encounter Qualified Code(s): S50.311A - Abrasion of right elbow, initial encounter
[2022-08-03] MEDS ORDERED: traMADol HCL 50 MG TABLET PO PRN (16:02)
[2022-08-03] MEDS: traMADol HCL 50 MG TABLET PO PRN (18:18)
[2022-08-03] MEDS: NICOTINE 14 MG/24 HR PATCH TD SCH (21:55)
[2022-08-04 08:12] LABS: Basophils # (auto) 0.03 K/uL (0-0.2); Basophils % (auto) 0.3 %; Eosinophils # (auto) 0.11 K/uL (0-0.50); Eosinophils % (auto) 1.2 %; Hematocrit (blood only) 29.9 % (37.0-47.0); Immature Granulocytes # (auto) 0.03 K/uL (0.01-0.20); Immature Granulocytes % (auto) 0.3 %; Lymphocytes # (auto) 1.23 K/uL (1.2-3.4); Lymphocytes % (auto) 13.7 %; Mean Corpuscular Hemoglobin 31.7 pg (25.0-34.0); Mean Corpuscular Hgb Conc 33.4 g/dL (32.0-36.0); Mean Corpuscular Volume 94.9 fL (80.0-100.0); Mean Platelet Volume 9.3 fL (9.4-12.4); Monocytes # (auto) 0.71 K/uL (0.11-0.59); Monocytes % (auto) 7.9 %; Neutrophils # (auto) 6.84 K/uL (1.40-6.50); Neutrophils % (auto) 76.6 %; Platelet Count 215 K/uL (130-400); RDW Coefficient of Variation 13.1 % (11.5-14.5); RDW Standard Deviation 45.1 fL (36.4-46.3); Red Blood Count 3.15 M/uL (4.20-5.40); White Blood Count 8.95 K/ul (4.8-10.8)
[2022-08-04] MEDS: traMADol HCL 50 MG TABLET PO PRN ×2 (08:13→19:42)
[2022-08-04] MEDS: MEMANTINE HCL 10 MG TAB PO SCH ×2 (08:14→21:26)
[2022-08-04] MEDS: CYANOCOBALAMIN (B-12) 500 MCG TABLET PO SCH (08:14)
[2022-08-04] MEDS: ENOXAPARIN INJ 30 MG/0.3 ML SYR SQ SCH (08:14)
[2022-08-04] MEDS: CALCIUM 600MG + VIT D 400 IU TAB PO SCH (08:15)
[2022-08-04] MEDS: ACETAMINOPHEN 325 MG TAB PO SCH ×4 (08:16→21:26)
[2022-08-04] MEDS: CHOLECALCIFEROL 1,000 UNITS 25 MCG TAB PO SCH (08:16)
[2022-08-04] MEDS: MULTIVITAMIN TAB PO SCH (08:16)
[2022-08-04] MEDS: PANTOprazole 40 MG TAB PO SCH (08:22)
[2022-08-04] MEDS: THIAMINE HCL 100 MG TAB PO SCH (08:22)
[2022-08-04 08:37] LABS: BUN Creatinine Ratio 29.8 (10-20); Calcium 8.8 mg/dl (8.6-10.3); Est GFR (African American) 103.6 ml/min; Est GFR (Non-African American) 89.4 ml/min; Potassium 4.1 mmol/L (3.5-5.1)
--- NOTE | 2022-08-04 15:52 | Hospitalist Progress Note ---
Date of Service August 04, 2022 Assessment & Plan (1) Fall: (2) Fracture of pubic ramus: (3) Contusion of elbow, right: (4) Abrasion of elbow, right: (5) Alzheimer's dementia: (6) Osteoporosis: Plan This is a 77-year-old female who presents to ED after sustaining a mechani jerri fall at home. Her past medical history includes Alzheimer's dementia, tobacco abuse, osteoporosis, B12 deficiency and bilateral atherosclerosis of lower extremities. Fall, mechanical Osteoporosis with pathologic R pubic rami fx Patient is a 77-year-old female with history of dementia presented to the ED with mechanical fall Pelvic CT shows comminuted fracture of right superior and inferior pubic rami. Possible nondisplaced fracture of right pubic symphysis. Orthopedic consulted; recommend weightbearing as tolerated on right lower extremity with walker. PT OT ordered. Pain control Follow-up as outpatient with orthopedic in 1 to 2 days DVT prophylaxis with Lovenox ordered. Dementia continue namenda Tobacco abuse pt declines nicotine patch at this time mood stable and pleasent Osteoporosis on fosamax as OP also just started on vit D 1,000 IU daily Vitamin D 23.7 Continue home supplement. DVT ppx: lovenox Dispo: PT/OT eval; will need rehab. Case management on board. PCP: [facility] FULL CODE Please note the above document was generated using voice recognition software. It may contain grammatical, syntax or spelling errors. Any formal questions or concerns about the content, text or information contained within the body of this dictation should be directly addressed to the provider for clarification Admission and Anticipated Discharge Date Admission Date: August 02, 2022 Subjective Patient seen and examined at bedside. She is sitting on the chair at the side of the bed; not in distress. Review of Systems Review of Systems: All systems reviewed & are unremarkable except as noted in Subjective Physical Exam Physical Exam: Constitutional: Awake, alert, oriented to self. Not in distress. Respiratory: normal respiratory effort, lungs clear to auscultation, no wheeze, rales, rhonchi. Normal insp/exp effort, no accessory muscle use Cardiovascular: RRR, no murmur, no edema Vessels: no JVD or carotid bruit Chest: normal inspection of chest Abdomen: normal bowel sounds, soft, nontender, no hepatosplenomegaly Musculoskeletal: Painful ROM on right hip. Skin: no rashes, warm and dry normal turgor Neurologic: PERRL, EOMI, accommodation nl, no face palsy, no dysarthria CN's II- XI intact bilaterally and moves all extremities Psychiatric: A+Ox self. Results & Data Results & Data Vital Signs (Past 12 Hours) Vital Signs Temp Pulse Resp BP Pulse Ox O2 Del Method 08/04/22 15:12 36.6 C 73 16 118/69 95 Room Air 08/04/22 06:57 36.8 C 76 16 114/66 95 Room Air Laboratory Results Laboratory Results WBC 8.95 K/ul (4.8-10.8) 08/04/22 07:25 RBC 3.15 M/uL (4.20-5.40) L 08/04/22 07:25 Hgb 10.0 g/dl (12.0-16.0) L 08/04/22 07:25 Hct 29.9 % (37.0-47.0) L 08/04/22 07:25 MCV 94.9 fL (80.0-100.0) 08/04/22 07:25 MCH 31.7 pg (25.0-34.0) 08/04/22 07:25 MCHC 33.4 g/dL (32.0-36.0) 08/04/22 07:25 RDW Std Deviation 45.1 fL (36.4-46.3) 08/04/22 07:25 RDW Coeff of Carey 13.1 % (11.5-14.5) 08/04/22 07:25 Plt Count 215 K/uL (130-400) 08/04/22 07:25 MPV 9.3 fL (9.4-12.4) L 08/04/22 07:25 Immature Gran % (Auto) 0.3 % 08/04/22 07:25 Neut % (Auto) 76.6 % 08/04/22 07:25 Lymph % (Auto) 13.7 % 08/04/22 07:25 [place] % (Auto) 7.9 % 08/04/22 07:25 Eos % (Auto) 1.2 % 08/04/22 07:25 Baso % (Auto) 0.3 % 08/04/22 07:25 Neut # (Auto) 6.84 K/uL (1.40-6.50) H 08/04/22 07:25 Lymph # (Auto) 1.23 K/uL (1.2-3.4) 08/04/22 07:25 [place] # (Auto) 0.71 K/uL (0.11-0.59) H 08/04/22 07:25 Eos # (Auto) 0.11 K/uL (0-0.50) 08/04/22 07:25 Baso # (Auto) 0.03 K/uL (0-0.2) 08/04/22 07:25 Immature Gran # (Auto) 0.03 K/uL (0.01-0.20) 08/04/22 07:25 PT 10.2 Seconds (9.0-12.0) 08/02/22 15:22 INR 0.9 (0.9-1.1) 08/02/22 15:22 APTT 25.2 Seconds (21.0-31.0) 08/02/22 15:22 PTT Ratio 0.9 08/02/22 15:22 Sodium 135 mmol/L (136-145) L 08/04/22 07:25 Potassium 4.1 mmol/L (3.5-5.1) 08/04/22 07:25 Chloride 105 mmol/L (98-107) 08/04/22 07:25 Carbon Dioxide 25 mmol/L (21-32) 08/04/22 07:25 Anion Gap 5 (3-11) 08/04/22 07:25 BUN 17 mg/dl (6-23) 08/04/22 07:25 Creatinine 0.57 mg/dl (0.6-1.2) L 08/04/22 07:25 Est Cr Clr Drug Dosing 53.0 ml/min 08/04/22 07:25 Est GFR ( Amer) 103.6 ml/min 08/04/22 07:25 Est GFR (Non-Af Amer) 89.4 ml/min 08/04/22 07:25 BUN/Creatinine Ratio 29.8 (10-20) H 08/04/22 07:25 Glucose 87 mg/dl (70-99(Fasting)) 08/04/22 07:25 Calcium 8.8 mg/dl (8.6-10.3) 08/04/22 07:25 Total Bilirubin 0.4 mg/dl (0.2-1.0) 08/02/22 15:31 AST 29 U/L (13-39) 08/02/22 15:31 ALT 24 U/L (7-52) 08/02/22 15:31 Alkaline Phosphatase 57 U/L (34-104) 08/02/22 15:31 Troponin I High Sens 3.5 pg/ml (0-14) 08/02/22 15:31 Total Protein 6.2 gm/dl (6.0-8.3) 08/02/22 15:31 Albumin 3.8 gm/dl (3.4-5.0) 08/02/22 15:31 Globulin 2.4 gm/dl (2.5-4.0) L 08/02/22 15:31 Albumin/Globulin Ratio 1.6 (0.9-2) 08/02/22 15:31 Lipase 43 U/L (11-82) 08/02/22 15:31 25-OH Vitamin D Total 23.7 ng/ml (30-100) L 08/02/22 15:31 SARS-CoV-2, RNA, NAAT NEGATIVE (NEGATIVE) 08/02/22 Unknown Impressions Chest X-Ray 08/02/22 15:10 XR chest 1V portable CLINICAL HISTORY: Chest pain, nonspecific TECHNIQUE: Single frontal radiograph of the chest was obtained. Comparison: None available at the time of this dictation. FINDINGS: No lines and tubes are seen. Calcified aortic knob is seen. The lungs are clear. No evidence of pleural effusion or pneumothorax. IMPRESSION: No acute chest disease. ACT 112: Negative or not required by law. Electronically signed by: Juan Alberto Mariscal M.D. 08/02/2022 5:01 PM Elbow X-Ray 08/02/22 15:10 XR elbow RT min 3V routine CLINICAL HISTORY: fall TECHNIQUE: 3 views of the right elbow were obtained. Comparison: None available at the time of this dictation. FINDINGS: There is no evidence of an acute fracture. Degenerative changes are seen in the elbow joint. There is no prominence of the anterior or posterior fat pads to suggest an effusion. No soft tissue abnormality is seen. IMPRESSION: No evidence of acute osseous injury. ACT 112: Negative or not required by law. Electronically signed by: Juan Alberto Mariscal M.D. 08/02/2022 4:42 PM Hip/Pelvis X-Ray 08/02/22 15:10 XR hip RT 2V w pelvis CLINICAL HISTORY: fall TECHNIQUE: 2 views of the right hip and single frontal view of the pelvis were obtained. Comparison: None available at the time of this dictation. FINDINGS: There is no evidence of an acute fracture. Joint spaces are well-preserved. No soft tissue abnormality is seen. IMPRESSION: No evidence of acute osseous injury. ACT 112: Negative or not required by law. Electronically signed by: Juan Alberto Mariscal M.D. 08/02/2022 4:[address] 08/02/22 17:15 CT pelvis wo con, CT hip RT wo con CLINICAL HISTORY: fall TECHNIQUE: Helical axial images of the pelvis were obtained and displayed at 5 and 1 mm intervals. Automated dose lowering techniques and/or adjustment according to patient size were utilized for this exam. Dedicated images of the right hip were also obtained. This exam was performed without intravenous contrast. CT DOSE: 331.02 mGy.cm COMPARISON: None available at the time of this dictation. FINDINGS: Bladder: Unremarkable. Reproductive organs: Multiple fibroids are seen. Bowel: Unremarkable. Lymph nodes Pelvic: Unremarkable. Mesenteric: Unremarkable. Peritoneum: Normal Vessels: Atherosclerotic calcifications are seen. Abdominal wall: Unremarkable. Bones: Comminuted fractures of the right inferior pubic ramus and right superior pubic ramus near the pubic symphysis noted. Nondisplaced fractures of the right pubic symphysis cannot be excluded. Degenerative changes are seen in the hips and visualized spine IMPRESSION: Comminuted fractures of the right superior and inferior pubic rami. Possible nondisplaced fracture of the right pubic symphysis. No hip fracture is seen. Additional findings as above. ACT 112: Negative or not required by law. Electronically signed by: Juan Alberto Mariscal M.D. 08/02/2022 6:[address] 08/02/22 17:15 CT pelvis wo con, CT hip RT wo con CLINICAL HISTORY: fall TECHNIQUE: Helical axial images of the pelvis were obtained and displayed at 5 and 1 mm intervals. Automated dose lowering techniques and/or adjustment according to patient size were utilized for this exam. Dedicated images of the right hip were also obtained. This exam was performed without intravenous contrast. CT DOSE: 331.02 mGy.cm COMPARISON: None available at the time of this dictation. FINDINGS: Bladder: Unremarkable. Reproductive organs: Multiple fibroids are seen. Bowel: Unremarkable. Lymph nodes Pelvic: Unremarkable. Mesenteric: Unremarkable. Peritoneum: Normal Vessels: Atherosclerotic calcifications are seen. Abdominal wall: Unremarkable. Bones: Comminuted fractures of the right inferior pubic ramus and right superior pubic ramus near the pubic symphysis noted. Nondisplaced fractures of the right pubic symphysis cannot be excluded. Degenerative changes are seen in the hips and visualized spine IMPRESSION: Comminuted fractures of the right superior and inferior pubic rami. Possible nondisplaced fracture of the right pubic symphysis. No hip fracture is seen. Additional findings as above. ACT 112: Negative or not required by law. Electronically signed by: Juan Alberto Mariscal M.D. 08/02/2022 6:25 PM (1) Fall Encounter type: initial encounter Qualified Code(s): W19.XXXA - Unspecified fall, initial encounter (2) Fracture of pubic ramus Encounter type: initial encounter Fracture type: closed Laterality: right Qualified Code(s): S32.591A - Other specified fracture of right pubis, initial encounter for closed fracture (3) Contusion of elbow, right Encounter type: initial encounter Qualified Code(s): S50.01XA - Contusion of right elbow, initial encounter (4) Abrasion of elbow, right Encounter type: initial encounter Qualified Code(s): S50.311A - Abrasion of right elbow, initial encounter
[2022-08-04] MEDS: NICOTINE 14 MG/24 HR PATCH TD SCH (21:25)
[2022-08-05] MEDS: CYANOCOBALAMIN (B-12) 500 MCG TABLET PO SCH (08:24)
[2022-08-05] MEDS: ACETAMINOPHEN 325 MG TAB PO SCH ×4 (08:25→20:42)
[2022-08-05] MEDS: THIAMINE HCL 100 MG TAB PO SCH (08:25)
[2022-08-05] MEDS: MEMANTINE HCL 10 MG TAB PO SCH ×2 (08:25→20:41)
[2022-08-05] MEDS: ENOXAPARIN INJ 30 MG/0.3 ML SYR SQ SCH (08:26)
[2022-08-05] MEDS: CALCIUM 600MG + VIT D 400 IU TAB PO SCH (08:26)
[2022-08-05] MEDS: CHOLECALCIFEROL 1,000 UNITS 25 MCG TAB PO SCH (08:26)
[2022-08-05] MEDS: PANTOprazole 40 MG TAB PO SCH (08:26)
[2022-08-05] MEDS: MULTIVITAMIN TAB PO SCH (08:26)
[2022-08-05 09:51] LABS: Calcium 9.4 mg/dl (8.6-10.3); Potassium 4.2 mmol/L (3.5-5.1)
[2022-08-05 09:56] LABS: BUN Creatinine Ratio 18.2 (10-20); Creatinine Clr Calc Pharmacy 54.9 ml/min; Est GFR (African American) 104.9 ml/min; Est GFR (Non-African American) 90.5 ml/min
[2022-08-05 10:48] LABS: Basophils # (auto) 0.03 K/uL (0-0.2); Basophils % (auto) 0.4 %; Eosinophils # (auto) 0.11 K/uL (0-0.50); Eosinophils % (auto) 1.3 %; Hematocrit (blood only) 30.7 % (37.0-47.0); Hemoglobin 10.1 g/dl (12.0-16.0); Immature Granulocytes # (auto) 0.02 K/uL (0.01-0.20); Immature Granulocytes % (auto) 0.2 %; Lymphocytes # (auto) 1.25 K/uL (1.2-3.4); Lymphocytes % (auto) 14.6 %; Mean Corpuscular Hemoglobin 31.8 pg (25.0-34.0); Mean Corpuscular Hgb Conc 32.9 g/dL (32.0-36.0); Mean Corpuscular Volume 96.5 fL (80.0-100.0); Mean Platelet Volume 9.5 fL (9.4-12.4); Monocytes # (auto) 0.64 K/uL (0.11-0.59); Monocytes % (auto) 7.5 %; Neutrophils # (auto) 6.51 K/uL (1.40-6.50); Platelet Count 248 K/uL (130-400); RDW Coefficient of Variation 12.8 % (11.5-14.5); RDW Standard Deviation 45.8 fL (36.4-46.3); Red Blood Count 3.18 M/uL (4.20-5.40); White Blood Count 8.56 K/ul (4.8-10.8)
[2022-08-05] MEDS: traMADol HCL 50 MG TABLET PO PRN ×3 (10:48→23:15)
[2022-08-05] MEDS ORDERED: traMADol HCL 50 MG TABLET PO STA (12:21)
--- NOTE | 2022-08-05 19:45 | Hospitalist Progress Note ---
Date of Service August 05, 2022 Assessment & Plan (1) Fall: (2) Fracture of pubic ramus: (3) Contusion of elbow, right: (4) Abrasion of elbow, right: (5) Alzheimer's dementia: (6) Osteoporosis: Plan This is a 77-year-old female who presents to ED after sustaining a mechani jerri fall at home. Her past medical history includes Alzheimer's dementia, tobacco abuse, osteoporosis, B12 deficiency and bilateral atherosclerosis of lower extremities. Fall, mechanical Osteoporosis with pathologic R pubic rami fx Patient is a 77-year-old female with history of dementia presented to the ED with mechanical fall Pelvic CT shows comminuted fracture of right superior and inferior pubic rami. Possible nondisplaced fracture of right pubic symphysis. Orthopedic consulted; recommend weightbearing as tolerated on right lower extremity with walker. PT OT ordered. Pain control intensified with additional tramadol today. Follow-up as outpatient with orthopedic in 1 to 2 weeks Dementia chronic, at baseline. No evidence of delirium. continue namenda per home regimen. Tobacco abuse smoking cessation advised, pt declines nicotine patch at this time Osteoporosis on fosamax as outpatient Cont vit D supplementation. DVT ppx: lovenox Dispo: PT/OT eval; will need rehab. Awaiting bed availability. PCP: Carmel FULL CODE Tyra Streeter DO [facility] Hospitalist Admission and Anticipated Discharge Date Admission Date: August 02, 2022 Subjective 77-year-old female with fracture of pubic ramus after mechanical fall at home from a standing height. Has known history of osteoporosis. Per orthopedics can weight-bear as tolerated using walker with the assistance of physical therapy. She is awaiting rehab placement. Today she reports her pain is uncontrolled with plain Tylenol. Added additional narcotic pain therapy. She has memory issues and ROS cannot be obtained clearly. Review of Systems Review of Systems: Memory issues therefore cannot reliably obtain. Pain is currently uncontrolled however. Physical Exam Physical Exam: CONSTITUTIONAL: WNWD, vitals as above, generally well-appearing, NAD, sitting in a chair EYES: normal conjunctivae, no scleral icterus ENT: external ear and nose normal, NECK: trachea midline, RESPIRATORY: clear to auscultation bilaterally, no crackles, rales or wheezes, normal respiratory effort CARDIOVASCULAR: regular rate and rhythm, S1 and 2 heard without murmurs, gallops or rubs, no JVD, no peripheral edema CHEST: inspection of chest was normal GASTROINTESTINAL: soft, nontender, ND, no guarding MUSCULOSKELETAL: strength 5/5 throughout, head is normocephalic and atraumatic SKIN: warm and dry NEUROLOGIC: CN 2-12 grossly intact, no sensory deficit, normal cognition, normal speech, no tremor PSYCHIATRIC: alert cooperative and oriented to person, place and time. Results & Data Results & Data Vital Signs (Past 12 Hours) Vital Signs Temp Pulse Resp BP Pulse Ox O2 Del Method 08/05/22 14:52 36.9 C 73 16 121/76 96 Room Air Laboratory Results Short CBC 08/05/22 Range/Units 08:40 WBC 8.56 (4.8-10.8) K/ul Hgb 10.1 L (12.0-16.0) g/dl Hct 30.7 L (37.0-47.0) % Plt Count 248 (130-400) K/uL BMP 08/05/22 08:40 Sodium 135 L Potassium 4.2 Chloride 102 Carbon Dioxide 28 BUN 10 Creatinine 0.55 L Glucose 91 Calcium 9.4 Medications Administered Current Inpatient Medications Acetaminophen (Acetaminophen 325 Mg Tab) 650 mg PO QID NACHO Stop: 09/01/22 20:59 Last Admin: 08/05/22 17:35 Dose: 650 mg Calcium/Vitamin D (Calcium 600mg + Vit D 400 Iu Tab) 1 tab PO DAILY NACHO Stop: 09/02/22 08:59 Last Admin: 08/05/22 08:26 Dose: 1 tab Cyanocobalamin (Cyanocobalamin (B-12) 500 Mcg Tablet) 1,000 mcg PO DAILY NACHO Stop: 09/02/22 08:59 Last Admin: 08/05/22 08:24 Dose: 1,000 mcg Enoxaparin Sodium (Enoxaparin Inj 30 Mg/0.3 Ml Syr) 30 mg SQ QAM NACHO Stop: 09/03/22 08:59 Last Admin: 08/05/22 08:26 Dose: 30 mg Memantine (Memantine Hcl 10 Mg Tab) 10 mg PO BID NACHO Stop: 09/01/22 20:59 Last Admin: 08/05/22 08:25 Dose: 10 mg Miscellaneous (Remove Nicoderm Patch) 1 each N/A DAILY@0859 NACHO Stop: 09/03/22 08:58 Last Admin: 08/05/22 08:27 Dose: 1 each Morphine Sulfate (Morphine Sulfate 2 Mg/Ml Carp) 1 mg IV Q8H PRN PRN Reason: Severe Pain (Scale 7, 8, 9,10) Stop: 08/16/22 20:56 Last Admin: 08/03/22 11:05 Dose: 1 mg Multivitamins (Multivitamin Tab) 1 tab PO DAILY NACHO Stop: 09/02/22 08:59 Last Admin: 08/05/22 08:26 Dose: 1 tab Nicotine (Nicotine 14 Mg/24 Hr Patch) 14 mg TD HS NACHO Stop: 09/02/22 20:59 Last Admin: 08/04/22 21:25 Dose: 14 mg Pantoprazole Sodium (Pantoprazole 40 Mg Tab) 40 mg PO DAILY NACHO Stop: 09/02/22 08:59 Last Admin: 08/05/22 08:26 Dose: 40 mg Polyethylene Glycol (Polyethylene (Miralax) 17 Gm Pack) 17 gm PO DAILY PRN PRN Reason: Constipation Stop: 09/01/22 20:56 Thiamine HCl (Thiamine Hcl 100 Mg Tab) 100 mg PO DAILY NACHO Stop: 09/02/22 08:59 Last Admin: 08/05/22 08:25 Dose: 100 mg Tramadol HCl (Tramadol Hcl 50 Mg Tablet) 50 mg PO Q6H PRN PRN Reason: moderate pain Stop: 09/02/22 16:14 Last Admin: 08/05/22 17:35 Dose: 50 mg Vitamin D (Cholecalciferol 1,000 Units 25 Mcg Tab) 1,000 units PO DAILY NACHO Stop: 09/02/22 08:59 Last Admin: 08/05/22 08:26 Dose: 1,000 units (1) Fall Encounter type: initial encounter Qualified Code(s): W19.XXXA - Unspecified fall, initial encounter (2) Fracture of pubic ramus Encounter type: initial encounter Fracture type: closed Laterality: right Qualified Code(s): S32.591A - Other specified fracture of right pubis, initial encounter for closed fracture (3) Contusion of elbow, right Encounter type: initial encounter Qualified Code(s): S50.01XA - Contusion of right elbow, initial encounter (4) Abrasion of elbow, right Encounter type: initial encounter Qualified Code(s): S50.311A - Abrasion of right elbow, initial encounter
[2022-08-05] MEDS: NICOTINE 14 MG/24 HR PATCH TD SCH (20:41)
[2022-08-06] MEDS: THIAMINE HCL 100 MG TAB PO SCH (09:09)
[2022-08-06] MEDS: ACETAMINOPHEN 325 MG TAB PO SCH ×4 (09:09→20:02)
[2022-08-06] MEDS: PANTOprazole 40 MG TAB PO SCH (09:10)
[2022-08-06] MEDS: CALCIUM 600MG + VIT D 400 IU TAB PO SCH (09:10)
[2022-08-06] MEDS: CYANOCOBALAMIN (B-12) 500 MCG TABLET PO SCH (09:10)
[2022-08-06] MEDS: MULTIVITAMIN TAB PO SCH (09:10)
[2022-08-06] MEDS: CHOLECALCIFEROL 1,000 UNITS 25 MCG TAB PO SCH (09:11)
[2022-08-06] MEDS: MEMANTINE HCL 10 MG TAB PO SCH ×2 (09:11→20:04)
[2022-08-06] MEDS: ENOXAPARIN INJ 30 MG/0.3 ML SYR SQ SCH (09:11)
--- NOTE | 2022-08-06 09:33 | Hospitalist Progress Note ---
Date of Service August 06, 2022 Assessment & Plan (1) Fall: (2) Fracture of pubic ramus: (3) Contusion of elbow, right: (4) Abrasion of elbow, right: (5) Alzheimer's dementia: (6) Osteoporosis: Plan This is a 77-year-old female who presents to ED after sustaining a mechani jerri fall at home. Her past medical history includes Alzheimer's dementia, tobacco abuse, osteoporosis, B12 deficiency and bilateral atherosclerosis of lower extremities. Fall, mechanical Osteoporosis with pathologic R pubic rami fx Patient is a 77-year-old female with history of dementia presented to the ED with mechanical fall Pelvic CT shows comminuted fracture of right superior and inferior pubic rami. Nondisplaced fracture of right pubic symphysis. Orthopedic consulted; recommend weightbearing as tolerated on right lower extremity with walker. PT OT ordered. Pain control intensified with additional tramadol today. Senna started for constipation and Miralax scheduled. Follow-up as outpatient with orthopedic in 1 to 2 weeks Dementia chronic, at baseline. No evidence of delirium. continue namenda per home regimen. Tobacco abuse smoking cessation advised, pt declines nicotine patch at this time Osteoporosis on fosamax as outpatient Cont vit D supplementation. DVT ppx: lovenox Dispo: PT/OT eval; will need rehab. Medically stable for discharge when bed available. PCP: Carmel FULL CODE Tyra Streeter DO [facility] Hospitalist Admission and Anticipated Discharge Date Admission Date: August 02, 2022 Subjective 77-year-old female with fracture of pubic ramus after mechanical fall at home from a standing height. Has known history of osteoporosis. Per orthopedics can weight-bear as tolerated using walker with the assistance of physical therapy. She is awaiting rehab placement. Today she reports her pain is uncontrolled and "my butt hurts" Per primary RN she does have a small wound on her left buttock with barrier cream in place. She is continuing to reposition the patient. Patient also reports difficulty pooping. Review of Systems Review of Systems: Memory issues therefore cannot reliably obtain. Pain is currently uncontrolled however. Physical Exam Physical Exam: CONSTITUTIONAL: WNWD, vitals as above, generally well-appearing, NAD, sitting in a chair EYES: normal conjunctivae, no scleral icterus ENT: external ear and nose normal, NECK: trachea midline, RESPIRATORY: clear to auscultation bilaterally, no crackles, rales or wheezes, normal respiratory effort CARDIOVASCULAR: regular rate and rhythm, S1 and 2 heard without murmurs, gallops or rubs, no JVD, no peripheral edema CHEST: inspection of chest was normal GASTROINTESTINAL: soft, nontender, ND, no guarding MUSCULOSKELETAL: strength 5/5 throughout, head is normocephalic and atraumatic SKIN: warm and dry NEUROLOGIC: CN 2-12 grossly intact, no sensory deficit, normal cognition, normal speech, no tremor PSYCHIATRIC: alert cooperative and oriented to person, place and time. Results & Data Results & Data Vital Signs (Past 12 Hours) Vital Signs Temp Pulse Resp BP Pulse Ox O2 Del Method 08/06/22 07:40 36.5 C 89 16 146/80 H 95 Room Air Laboratory Results Short CBC 08/05/22 Range/Units 08:40 WBC 8.56 (4.8-10.8) K/ul Hgb 10.1 L (12.0-16.0) g/dl Hct 30.7 L (37.0-47.0) % Plt Count 248 (130-400) K/uL BMP 08/05/22 08:40 Sodium 135 L Potassium 4.2 Chloride 102 Carbon Dioxide 28 BUN 10 Creatinine 0.55 L Glucose 91 Calcium 9.4 Medications Administered Current Inpatient Medications Acetaminophen (Acetaminophen 325 Mg Tab) 650 mg PO QID NACHO Stop: 09/01/22 20:59 Last Admin: 08/06/22 09:09 Dose: 650 mg Calcium/Vitamin D (Calcium 600mg + Vit D 400 Iu Tab) 1 tab PO DAILY NACHO Stop: 09/02/22 08:59 Last Admin: 08/06/22 09:10 Dose: 1 tab Cyanocobalamin (Cyanocobalamin (B-12) 500 Mcg Tablet) 1,000 mcg PO DAILY NACHO Stop: 09/02/22 08:59 Last Admin: 08/06/22 09:10 Dose: 1,000 mcg Enoxaparin Sodium (Enoxaparin Inj 30 Mg/0.3 Ml Syr) 30 mg SQ QAM NACHO Stop: 09/03/22 08:59 Last Admin: 08/06/22 09:11 Dose: 30 mg Memantine (Memantine Hcl 10 Mg Tab) 10 mg PO BID NACHO Stop: 09/01/22 20:59 Last Admin: 08/06/22 09:11 Dose: 10 mg Miscellaneous (Remove Nicoderm Patch) 1 each N/A DAILY@0859 NACHO Stop: 09/03/22 08:58 Last Admin: 08/06/22 09:12 Dose: 1 each Multivitamins (Multivitamin Tab) 1 tab PO DAILY NACHO Stop: 09/02/22 08:59 Last Admin: 08/06/22 09:10 Dose: 1 tab Nicotine (Nicotine 14 Mg/24 Hr Patch) 14 mg TD HS NACHO Stop: 09/02/22 20:59 Last Admin: 08/05/22 20:41 Dose: 14 mg Pantoprazole Sodium (Pantoprazole 40 Mg Tab) 40 mg PO DAILY NACHO Stop: 09/02/22 08:59 Last Admin: 08/06/22 09:10 Dose: 40 mg Polyethylene Glycol (Polyethylene (Miralax) 17 Gm Pack) 17 gm PO DAILY PRN PRN Reason: Constipation Stop: 09/01/22 20:56 Thiamine HCl (Thiamine Hcl 100 Mg Tab) 100 mg PO DAILY NACHO Stop: 09/02/22 08:59 Last Admin: 08/06/22 09:09 Dose: 100 mg Tramadol HCl (Tramadol Hcl 50 Mg Tablet) 50 mg PO Q6H PRN PRN Reason: moderate pain Stop: 09/02/22 16:14 Last Admin: 08/05/22 23:15 Dose: 50 mg Vitamin D (Cholecalciferol 1,000 Units 25 Mcg Tab) 1,000 units PO DAILY NACHO Stop: 09/02/22 08:59 Last Admin: 08/06/22 09:11 Dose: 1,000 units (1) Fall Encounter type: initial encounter Qualified Code(s): W19.XXXA - Unspecified fall, initial encounter (2) Fracture of pubic ramus Encounter type: initial encounter Fracture type: closed Laterality: right Qualified Code(s): S32.591A - Other specified fracture of right pubis, initial encounter for closed fracture (3) Contusion of elbow, right Encounter type: initial encounter Qualified Code(s): S50.01XA - Contusion of right elbow, initial encounter (4) Abrasion of elbow, right Encounter type: initial encounter Qualified Code(s): S50.311A - Abrasion of right elbow, initial encounter
[2022-08-06] MEDS: DOCUSATE SODIUM/SENNA 50/8.6MG TAB PO SCH (16:14)
[2022-08-06] MEDS: traMADol HCL 50 MG TABLET PO PRN ×2 (16:14→22:24)
[2022-08-06] MEDS: NICOTINE 14 MG/24 HR PATCH TD SCH (20:03)
[2022-08-06] MEDS ORDERED: OLANZapine 10 MG/2.1 ML SDV IM PRN (22:41)
[2022-08-06] MEDS ORDERED: OLANZapine 10 MG/2.1 ML SDV IM STA (22:41)
[2022-08-06] MEDS ORDERED: OLANZAPINE 2.5 MG TAB PO STA (22:44)
[2022-08-07] MEDS ORDERED: OLANZAPINE 2.5 MG TAB PO PRN (02:35)
[2022-08-07] MEDS: traMADol HCL 50 MG TABLET PO PRN (06:08)
[2022-08-07] MEDS: MULTIVITAMIN TAB PO SCH (09:00)
[2022-08-07] MEDS: MEMANTINE HCL 10 MG TAB PO SCH (09:00)
[2022-08-07] MEDS: CYANOCOBALAMIN (B-12) 500 MCG TABLET PO SCH (09:00)
[2022-08-07] MEDS: THIAMINE HCL 100 MG TAB PO SCH (09:00)
[2022-08-07] MEDS ORDERED: POLYETHYLENE (MIRALAX) 17 GM PACK PO SCH (09:00)
[2022-08-07] MEDS: PANTOprazole 40 MG TAB PO SCH (09:00)
[2022-08-07] MEDS: CALCIUM 600MG + VIT D 400 IU TAB PO SCH (09:00)
[2022-08-07] MEDS: CHOLECALCIFEROL 1,000 UNITS 25 MCG TAB PO SCH (09:00)
[2022-08-07] MEDS: ENOXAPARIN INJ 30 MG/0.3 ML SYR SQ SCH (09:01)
[2022-08-07] MEDS: ACETAMINOPHEN 325 MG TAB PO SCH (09:01)
[2022-08-07] MEDS: DOCUSATE SODIUM/SENNA 50/8.6MG TAB PO SCH (09:08)
--- NOTE | 2022-08-07 11:33 | Discharge Summary ---
Discharge Summary Date of Service August 07, 2022 Notes For Next Care Provider Fall with public rami fracture; non-surgical. WBAT RLE with walker per ortho, f/u in clinic in 1-2 wks, discharged to [facility] Medication Changes From Visit Continue Tylenol and Tramadol as needed for pain control. Senna started for constipation and Miralax scheduled to help prevent constipation. Admission HPI Per Admitting Provider This is a 77-year-old female who presents to ED after sustaining a mechanical fall at home. Her past medical history includes Alzheimer's dementia, tobacco abuse, osteoporosis, B12 deficiency and bilateral atherosclerosis of lower extremities. Imaging in ED revealed comminuted fracture of the right superior and inferior pubic rami with a possible nondisplaced fracture of the right pubic symphysis. She also has a right elbow abrasion and contusion. Due to her dementia her underlying history is unreliable. She states she fell when trying to, "get her Doberman." Friends at bedside state this was not the case and that she fell on her payment. Up until her fall today she is otherwise been in normal state of health. She denies any recent illness, fever, chills, sweats, chest pain, shortness of breath, nausea, vomiting, abdominal pain. She has no family close by. She does have a daughter that lives up in [place] who is her power of divorce attorney. Admission Exam Per Admitting Provider Constitutional: Thin, petite vitals as above, NAD, sitting up in bed, pleasant, conversing easily Head: Normocephalic, Atraumatic Eyes: PERRL, conjunctivae normal, anicteric sclerae ENMT: external ear and nose normal, oropharynx normal Neck: trachea midline, no thyromegaly normal visual inspection Respiratory: normal respiratory effort, lungs clear to auscultation, no wheeze, rales, rhonchi. Normal insp/exp effort, no accessory muscle use Cardiovascular: RRR, no murmur, no edema Vessels: no JVD or carotid bruit Chest: normal inspection of chest Abdomen: normal bowel sounds, soft, nontender, no hepatosplenomegaly Musculoskeletal: no cyanosis or clubbing, b/l upper ext arom intact, nvi distally lower ext Skin: no rashes, warm and dry normal turgor , R elbow skin tear Neurologic: PERRL, EOMI, accommodation nl, no face palsy, no dysarthria CN's II-XI intact bilaterally and moves all extremities Psychiatric: A+Ox2 to person/time, euthymic affect Lymphatic: no cervical or axillary lymphadenopathy : deferred Principal Dx & Hospital Course #1 = Principal Diagnosis (1) Fall: (2) Fracture of pubic ramus: (3) Alzheimer's dementia: (4) Major depressive disorder in remission: Plan This is a 77-year-old female who presents to ED after sustaining a mechanical fall at home. Her past medical history includes Alzheimer's dementia, tobacco abuse, osteoporosis, B12 deficiency and bilateral atherosclerosis of lower extremities. Imaging in ED revealed comminuted fracture of the right superior and inferior pubic rami with a possible nondisplaced fracture of the right pubic symphysis. Orthopedic consulted; recommend weightbearing as tolerated on right lower extremity with walker. Continue Tylenol and Tramadol as needed for pain control. Senna started for constipation and Miralax scheduled to help prevent constipation. Follow-up as outpatient with orthopedic in 1-2 weeks. Continue monitoring for urinary retention with bladder scanning Q6H as needed. Hemodynamically stable at time of discharge to [facility]. Discharge Exam Gen: WD/WN, NAD,lying in bed, A&Ox3, pleasant with dementia, petite, resting comfortably HEENT: Normocephalic, atraumatic, conjunctivae moist, sclerae anicteric, mucous membranes moist Lung: Clear to Auscultation bilaterally, no wheezes/rales/rhonchi Heart: Regular rate, regular rhythm, no murmurs, rubs, or gallops Abdomen: Soft, NT, ND +BS x 4 Extremities: no edema Skin: Warm, no rash Updated Medication List Medication Instructions Recorded Confirmed Type food supplemt, lactose-reduced 1 ea PO DAILY 12/22/21 08/02/22 History (Ensure oral liquid) mecobalamin (vitamin B12) 1,000 1,000 mcg PO DAILY 12/22/21 08/02/22 History mcg chewable tablet thiamine HCl (vitamin B1) 100 mg 100 mg PO DAILY 12/22/21 08/02/22 History tablet alendronate 70 mg tablet 70 mg PO WE 12/25/21 08/02/22 History calcium carbonate 600 mg-vitamin 1 cap PO DAILY 12/25/21 08/02/22 History D3 12.5 mcg (500 unit) capsule (Calcium 600 with Vitamin D3) memantine 10 mg tablet 10 mg PO BID #60 tabs 06/04/22 08/02/22 Rx cholecalciferol (vitamin D3) 25 25 mcg PO DAILY 08/02/22 08/02/22 History mcg (1,000 unit) capsule (Vitamin D3) multivitamin-ferrous 1 tab PO DAILY 08/02/22 08/02/22 History fumarate-folic acid 18 mg-400 mcg tablet (Centrum Women) pantoprazole 40 mg tablet,delayed 40 mg PO DAILY 08/02/22 08/02/22 History release acetaminophen 325 mg tablet 650 mg PO QID PRN pain or fever 08/07/22 Rx #30 tabs tramadol 50 mg tablet 50 mg PO Q6H PRN pain #8 tabs 08/07/22 Rx Hospital Stay Data Consultations 08/02/22 18:11 ED Decision to Admit Stat 08/02/22 18:25 Consult Orthopedic Surgery Routine Diagnostic Imagining Performed 08/02/22 17:15 CT hip RT wo con Stat CT pelvis wo con Stat Pending Results Patient Have Any Pending Studies at Discharge: No Discharge Instructions Given to Patient (Per Discharging Provider) You were admitted to hospital secondary to fall. Pelvic CT shows comminuted fracture of right superior and inferior pubic rami. Nondisplaced fracture of right pubic symphysis. Orthopedic consulted; recommend weightbearing as tolerated on right lower extremity with walker. Continue Tylenol and Tramadol as needed for pain control. Senna started for constipation and Miralax scheduled to help prevent constipation. Follow-up as outpatient with orthopedic in 1-2 weeks. Continue monitoring for urinary retention with bladder scanning Q6H as needed. PENDING TEST RESULTS: None RECOMMENDATIONS FOR FOLLOW-UP: Follow up with PCP as scheduled. Continue medication regimen as scheduled aside from changes noted above. OTHER INSTRUCTIONS: Seek medical attention if you have: * temperature above 101 * chest pain or trouble breathing * abdominal pain, nausea, vomiting * diarrhea, dark stools or bloody stools * any unanswered questions or concerns Call 911 if symptoms are severe. Please take good care of yourself. Call if you have any questions or problems. You can reach a [facility] hospitalist on duty at [facility] 24 hours a day by calling [phone]. Total Time Total Time Spent Total Time Spent (In Minutes): 50
== END 2022-08-07 12:21 | DRG 544 ==
LOC: ED 14:59 → 3N 18:23 → SUATTDRO 18:23 → 3N 20:28